=== PATIENT | female | born 1955 | race Hispanic/Latino ===

== ENCOUNTER 2023-11-22 06:12 | Day surgery (SDC) | payer MEDICARE ==
[~2023-11-22] VITALS: Ht 160 cm; Wt 63.5 kg
[2023-11-22] VITALS (10 sets, daily range): BP systolic 90–161; BP diastolic 45–73; PULSE 55–62; RESP 15–18
[~2023-11-22 06:12] MED LIST: ASPI-1197 PO; ATOR10 PO; CLOP75TA32 PO; DONE10TA43 PO; FLUOXETINE PO; HYDR25TA PO; HYDR25TA67 PO; LOSA100T59 PO; METF-527 PO; METO-408 PO
[2023-11-22] MEDS: 0.9%NACL 1000ML 1,000 ML IV ONE (06:19)
[2023-11-22] MEDS ORDERED: PROPOFOL 10 MG/ML 20ML VIAL IV ONE ×2 (07:34)
== END 2023-11-22 09:25 | disposition home or self-care (01) ==
LOC: DAH 06:12 → ENDO 06:12
PROVIDERS: ATTEND Internal Medicine
DX: K52.9 Noninfective gastroenteritis and colitis, unspecified (principal); D12.3 Benign neoplasm of transverse colon; K29.50 Unspecified chronic gastritis without bleeding; R15.9 Full incontinence of feces; R63.4 Abnormal weight loss; R13.10 Dysphagia, unspecified; I10 Essential (primary) hypertension; E78.5 Hyperlipidemia, unspecified; F02.80 Dementia in other diseases classified elsewhere, unspecified severity, without behavioral disturbance, psychotic disturbance, mood disturbance, and anxiety; Z86.73 Personal history of transient ischemic attack (TIA), and cerebral infarction without residual deficits; Z79.899 Other long term (current) drug therapy
CPT/HCPCS: 82948 ×2; 43239; 45380; 45385; J7030 ×2; J2704 ×2; A4620; A4215; A4223; A4657; A7002; A4222; A4221; A4606; J3490